=== PATIENT | female | born 1930 | race Caucasian/White ===

== ENCOUNTER 2018-03-18 21:16 | Inpatient (IN) | payer OTHER ==
[~2018-03-18] VITALS: Ht 152.4 cm; Wt 49.9 kg
[2018-03-18] MEDS ORDERED: ASPIR 8181 MG (22:12)
[2018-03-18] MEDS ORDERED: NORVASC2.5 M1 (22:12)
[2018-03-18] MEDS ORDERED: HYDROCHLOROTH12.5 M1 (22:13)
[2018-03-18] MEDS ORDERED: BUPROPION XL300 MG (22:13)
[2018-03-18] MEDS ORDERED: VITAMIN B12-FO1 EACH (22:14)
[2018-03-18] MEDS ORDERED: ALPRAZOLAM ODT1 MG (22:14)
[2018-03-18] MEDS ORDERED: FERRETTS325 MG (22:14)
[2018-03-28] MEDS ORDERED: FERRETTS325 MG PO (11:17)
[2018-03-28] MEDS ORDERED: PANTOPRAZOLE SO40 MG PO (11:23)
[2018-03-28] MEDS ORDERED: SURFAK240 M1 PO (11:32)
== END 2018-03-28 12:27 | disposition home or self-care (01) | DRG 812 ==
LOC: ER 21:16 → MEDI 03-19 14:42 → ICU-2 03-19 14:42 → MEDI 03-22 10:34
PROC: B246ZZZ Ultrasonography of Right and Left Heart (ICD-10-PCS; 2018-03-19)
PROC: 30233N1 Transfusion of Nonautologous Red Blood Cells into Peripheral Vein, Percutaneous Approach (ICD-10-PCS; 2018-03-19)
PROC: BW210ZZ Computerized Tomography (CT Scan) of Abdomen and Pelvis using High Osmolar Contrast (ICD-10-PCS; 2018-03-21)
PROC: 4A12X4Z Monitoring of Cardiac Electrical Activity, External Approach (ICD-10-PCS; 2018-03-22)
PROC: 0DB98ZX Excision of Duodenum, Via Natural or Artificial Opening Endoscopic, Diagnostic (ICD-10-PCS; principal; 2018-03-27)
PROC: 0DB68ZX Excision of Stomach, Via Natural or Artificial Opening Endoscopic, Diagnostic (ICD-10-PCS; 2018-03-27)
PROC: 0DB58ZX Excision of Esophagus, Via Natural or Artificial Opening Endoscopic, Diagnostic (ICD-10-PCS; 2018-03-27)
DX: D64.89 Other specified anemias (principal); I24.8 Other forms of acute ischemic heart disease; J90 Pleural effusion, not elsewhere classified; I35.0 Nonrheumatic aortic (valve) stenosis; D50.8 Other iron deficiency anemias; F03.90 Unspecified dementia, unspecified severity, without behavioral disturbance, psychotic disturbance, mood disturbance, and anxiety; E78.49 Other hyperlipidemia; K44.9 Diaphragmatic hernia without obstruction or gangrene; I10 Essential (primary) hypertension; N20.0 Calculus of kidney; F41.9 Anxiety disorder, unspecified; K59.09 Other constipation; Z85.038 Personal history of other malignant neoplasm of large intestine

== ENCOUNTER 2018-12-08 19:51 | Inpatient (IN) | payer OTHER ==
[~2018-12-08] VITALS: Ht 154.9 cm; Wt 45.4 kg
[~2018-12-08 19:51] MED LIST: ALPRAZOLAM ODT1 MG; ASPIR 8181 MG; BUPROPION XL300 MG; FERRETTS325 MG; FERRETTS325 MG PO; HYDROCHLOROTH12.5 M1; NORVASC2.5 M1; PANTOPRAZOLE SO40 MG PO; SURFAK240 M1 PO; VITAMIN B12-FO1 EACH
[2018-12-08] MEDS ORDERED: SLOW FE142 MG (20:16)
[2018-12-08] MEDS ORDERED: FOLIC ACID0.4 MG (20:16)
[2018-12-08] MEDS ORDERED: PROTONIX40 M1 (20:17)
[2018-12-08] MEDS ORDERED: DOCUSATE CALCI240 MG (20:17)
[2018-12-08] MEDS ORDERED: HYDROCHLOROTHIAZ1 GM (20:17)
[2018-12-08] MEDS ORDERED: D3 + K2 DOTS 11 EACH (20:17)
[2018-12-08] MEDS ORDERED: BIOFLEX TABLET1 EACH (20:18)
[2018-12-08] MEDS ORDERED: APLENZIN174 MG (20:18)
[2018-12-08] MEDS ORDERED: NORVASC2.5 MG (20:18)
[2018-12-08] MEDS ORDERED: ARTHRITIS PAIN650 M2 (20:18)
[2018-12-08] MEDS ORDERED: ALPRAZOLAM1 M1 (20:19)
== END 2018-12-15 16:56 | disposition home or self-care (01) | DRG 812 ==
LOC: ER 19:51 → SURH 12-09 11:36
PROVIDERS: ADMIT Internal Medicine
PROC: BW21Y0Z Computerized Tomography (CT Scan) of Abdomen and Pelvis using Other Contrast, Unenhanced and Enhanced (ICD-10-PCS; principal; 2018-12-09)
PROC: 30233N1 Transfusion of Nonautologous Red Blood Cells into Peripheral Vein, Percutaneous Approach (ICD-10-PCS; 2018-12-11)
PROC: B246ZZZ Ultrasonography of Right and Left Heart (ICD-10-PCS; 2018-12-13)
DX: D50.8 Other iron deficiency anemias (principal); K92.1 Melena; I35.2 Nonrheumatic aortic (valve) stenosis with insufficiency; I10 Essential (primary) hypertension; K57.30 Diverticulosis of large intestine without perforation or abscess without bleeding; N20.0 Calculus of kidney; R97.0 Elevated carcinoembryonic antigen [CEA]; R31.0 Gross hematuria; Z08 Encounter for follow-up examination after completed treatment for malignant neoplasm; Z85.038 Personal history of other malignant neoplasm of large intestine

== ENCOUNTER 2019-07-08 15:24 | Emergency (ER) | payer OTHER ==
[~2019-07-08] VITALS: Ht 154.9 cm; Wt 45.4 kg
[~2019-07-08 15:24] MED LIST changes: +ALPRAZOLAM1 M1; +APLENZIN174 MG; +ARTHRITIS PAIN650 M2; +BIOFLEX TABLET1 EACH; +D3 + K2 DOTS 11 EACH; +DOCUSATE CALCI240 MG; +FOLIC ACID0.4 MG; +HYDROCHLOROTHIAZ1 GM; +NORVASC2.5 MG; +PROTONIX40 M1; +SLOW FE142 MG
[2019-07-08] MEDS ORDERED: B-COMPLEX PLUS1 EACH PO (15:38)
[2019-07-08] MEDS ORDERED: DIALYVITE 800-1 EACH PO (15:38)
[2019-07-08] MEDS ORDERED: FEOSOL325 MG PO (15:39)
[2019-07-08] MEDS ORDERED: PROTONIX40 M1 PO (15:39)
[2019-07-08] MEDS ORDERED: DOCUSATE CALCI240 MG PO (15:39)
[2019-07-08] MEDS ORDERED: AMLODIPINE PO (15:40)
[2019-07-08] MEDS ORDERED: BIOFLEX TABLET1 EACH PO (15:41)
[2019-07-08] MEDS ORDERED: [UNRECOGNIZED DRUG - OTHER] PO (15:42)
== END 2019-07-08 21:53 | disposition home or self-care (01) ==
LOC: ER
DX: S50.311A Abrasion of right elbow, initial encounter (principal); S20.211A Contusion of right front wall of thorax, initial encounter; S20.212A Contusion of left front wall of thorax, initial encounter; W18.09XA Striking against other object with subsequent fall, initial encounter; Y93.89 Activity, other specified; Y92.098 Other place in other non-institutional residence as the place of occurrence of the external cause; Y99.8 Other external cause status